=== PATIENT | female | born 1975 | race Caucasian/White ===

== ENCOUNTER 2018-05-02 00:45 | Outpatient (CLI) | payer OTHER, SELFPAY ==
--- NOTE | 2018-05-02 08:10 | DI.MAMMO_ITS ---
SYMPTOM/DIAGNOSIS: SCREENING, Z12.31 MAMMOGRAM: 04/22 Mammograms were interpreted according to the usual protocol including computer analysis with CAD system, tomosynthesis and C view imaging. The breasts are of moderate density with fairly symmetrical distribution of fibroglandular tissue. No dominant mass or clumped microcalcification is identified in either breast. The current examination is compared with previous examination of March 2016 and there has been no gross interval change in appearance in comparison with the previous study. CONCLUSION: No specific evidence of malignancy at this time. Routine screening examinations are suggested at yearly intervals due to the family history of breast carcinoma. Category 1, breast density category B. MQSA ASSESSMENT OF FINDINGS: Negative. Category 1. Patient will receive a letter notifying them of these results. BI-RADS category B. There are scattered areas of fibroglandular density.
== END 2018-05-02 01:05 ==
PROVIDERS: PCP Nurse Practitioner Family; Visit Provider Nurse Practitioner Family
DX: Z12.31 Encounter for screening mammogram for malignant neoplasm of breast (principal); Z80.3 Family history of malignant neoplasm of breast
CPT/HCPCS: 77063; 77067

== ENCOUNTER 2019-04-21 13:47 | Outpatient (REF) | payer OTHER, SELFPAY ==
--- NOTE | 2019-04-21 13:30 | PAPFT_PTH ---
PATIENT: Gisela Colon LOC: [facility] U#:[id number] AGE/SX: 43/F ROOM: RE04/21/[address]: MINH Olivas : 1975 BED: DIS: 04/21/2019 SPEC #: [id number] RECD: 04/21/19 17:23 STATUS: KAREY RELeonor #: [id number] ALEJANDRA: 04/21/19 13:[address]: Elsa Lyons DEPT: COUNT INCLUDES THE [facility] Cytology RECD BY: Candy Mc ENTERED: 04/21/19 17:23 SP TYPE: PAPFT KITAHR DR: Promise Joseph Tissues: 1 - CX/ENDOCX FOR PAP SMEARS Procedures: PAP THIN PREP/UVM Screening HPV DNA PROBE Comments: [id number]
== END 2019-04-21 14:07 ==
LOC: LBN 13:47
PROVIDERS: PCP Nurse Practitioner Family; Visit Provider Nurse Practitioner Family
DX: Z12.4 Encounter for screening for malignant neoplasm of cervix (principal); Z11.51 Encounter for screening for human papillomavirus (HPV)
CPT/HCPCS: 88142; 87624

== ENCOUNTER 2019-05-10 09:45 | Outpatient (CLI) | payer OTHER, SELFPAY ==
--- NOTE | 2019-05-10 09:41 | DI.RAD_ITS ---
EXAM: XR KNEE LT 4V AP,LAT,KAITLYNN,PAT CLINICAL HISTORY: KNEE INJURY TECHNIQUE: COMPARISON: No exams were available for comparison FINDINGS: Four views were obtained. No bony or soft tissue abnormality seen. IMPRESSION:
== END 2019-05-10 10:05 ==
PROVIDERS: PCP Nurse Practitioner Family; Referring Provider Nurse Practitioner Family; Visit Provider Student in an Organized Health Care Education/Training Program
DX: M25.562 Pain in left knee (principal); M70.52 Other bursitis of knee, left knee; M70.62 Trochanteric bursitis, left hip; M23.92 Unspecified internal derangement of left knee
CPT/HCPCS: 99203; 73564

== ENCOUNTER → 2019-06-27 08:49 | Outpatient (BNVA) | payer OTHER, SELFPAY | PROVIDERS: PCP Nurse Practitioner Family; Referring Provider Nurse Practitioner Family; Visit Provider Student in an Organized Health Care Education/Training Program | DX: M25.569 Pain in unspecified knee (principal); M23.8X2 Other internal derangements of left knee; M70.62 Trochanteric bursitis, left hip; M70.52 Other bursitis of knee, left knee | CPT/HCPCS: 99213 ==

== ENCOUNTER 2019-10-03 10:22 | Outpatient (CLI) | payer OTHER, SELFPAY ==
--- NOTE | 2019-10-03 08:30 | DI.RAD_ITS ---
EXAM: XR HIP RT 1V CLINICAL HISTORY: pain. TECHNIQUE: 2D digital imaging was performed. COMPARISON: XR HIP LT COMPLETE AP PELVIS from 10/03/2019 FINDINGS: BONES: No acute fracture is present. No bony destructive lesion is seen. There is mild bilateral stephen tabular spurring. There is partial sacralization of the right L5 transverse process with spurring at this site. Disc space narrowing is also noted at L4-5. There is some sclerosis at the pubic symphy sis. JOINTS: No dislocation present. The hip joint spaces are well maintained. The SI joints are unremar kable. SOFT TISSUE: Normal. IMPRESSION: Minimal degenerative changes of both hips. More advanced degenerative changes are seen in the lower lumbar spine.. DATA REPOSITORY: RADIATION DOSE DELIVERED:
== END 2019-10-03 10:42 ==
PROVIDERS: PCP Nurse Practitioner Family; Referring Provider Nurse Practitioner Family; Visit Provider Student in an Organized Health Care Education/Training Program
DX: M51.36 Other intervertebral disc degeneration, lumbar region; M23.92 Unspecified internal derangement of left knee; M70.52 Other bursitis of knee, left knee; M70.61 Trochanteric bursitis, right hip; M70.62 Trochanteric bursitis, left hip; M22.42 Chondromalacia patellae, left knee; M65.9 Synovitis and tenosynovitis, unspecified
CPT/HCPCS: 99214; 73501; 73502

== ENCOUNTER 2019-10-09 00:26 | Outpatient (CLI) | payer OTHER, SELFPAY ==
--- NOTE | 2019-10-09 07:00 | DI.MRI_ITS ---
EXAM: MR LOWER JOINT LT WO CLINICAL HISTORY: INTERNAL DERANGEMENT,SYNOVITIS,PAIN,M23.92,M65.9. TECHNIQUE: Multiplanar multisequence MRI was performed. COMPARISON: No exams were available for comparison FINDINGS: MR examination of the knee was performed according to the usual protocol. Bones: No significant bony signal abnormality is seen. Synovium: No gross synovial proliferation. Articular cartilage: There are small clefts in medial and lateral patellar articular cartilage and in corresponding lateral trochlear cartilage with moderately abnormal signal and some articular cartila ge thinning of the patellar articular cartilage, most clearly seen centrally on the sagittal images. The tibial and femoral articular cartilage appears intact. Extensor mechanism: Apart from the aforementioned articular cartilage abnormality of the patellofemor al joint, the extensor mechanism appears intact except for mild signal abnormality in the Hoffa fat p ad. The patellar retinacula are unremarkable. Cruciate ligaments: There is abnormal signal in the anterior cruciate ligament particularly adjacent to the tibial attachment but the fibers of the ACL appear intact, particularly on the oblique PD view . Findings may represent an ACL strain but are probably degenerative in nature. Menisci: Unremarkable appearance of the medial meniscus. Probable horizontal peripheral tear of the lateral meniscus posteriorly. Collateral ligaments: Unremarkable appearance of the collateral ligaments. IMPRESSION: Degenerative articular cartilage changes of the patellofemoral joint which can be characterized as mi [id number]. Probable peripheral horizontal posterior horn lateral meniscal tear. DATA REPOSITORY:
== END 2019-10-09 00:46 ==
PROVIDERS: PCP Nurse Practitioner Family; Visit Provider Student in an Organized Health Care Education/Training Program
DX: M25.562 Pain in left knee (principal); M17.12 Unilateral primary osteoarthritis, left knee; M23.92 Unspecified internal derangement of left knee; M65.9 Synovitis and tenosynovitis, unspecified; S83.282A Other tear of lateral meniscus, current injury, left knee, initial encounter
CPT/HCPCS: 73721

== ENCOUNTER → 2019-10-26 10:41 | Outpatient (BNVA) | payer OTHER, SELFPAY | PROVIDERS: PCP Nurse Practitioner Family; Referring Provider Nurse Practitioner Family; Visit Provider Student in an Organized Health Care Education/Training Program | DX: M70.61 Trochanteric bursitis, right hip; M70.62 Trochanteric bursitis, left hip; M22.42 Chondromalacia patellae, left knee; S83.282D Other tear of lateral meniscus, current injury, left knee, subsequent encounter; X58.XXXD Exposure to other specified factors, subsequent encounter | CPT/HCPCS: 99213 ==

== ENCOUNTER 2019-12-25 13:32 | Outpatient (REF) | payer OTHER, SELFPAY ==
[2019-12-30 06:51] LABS: SARS-CoV-2 RNA Undetected (Undetected); SARS-CoV-2 Specimen Source Nasopharynx
== END 2019-12-25 13:52 ==
LOC: NCHCN 13:32
PROVIDERS: PCP Nurse Practitioner Family; Visit Provider Nurse Practitioner Family
DX: Z20.828 Contact with and (suspected) exposure to other viral communicable diseases (principal)
CPT/HCPCS: U0003

== ENCOUNTER 2020-06-05 01:02 | Outpatient (CLI) | payer OTHER, SELFPAY ==
--- NOTE | 2020-06-05 12:10 | DI.MAMMO_ITS ---
EXAM: MG MAMMO SCREENING CLINICAL HISTORY: screening TECHNIQUE: Bilateral full field digital CC and MLO mammographic images were obtained with 3D tomosyn thesis and utilizing computer aided detection (CAD). COMPARISON: Available for comparison. FINDINGS: Masses/Architectural Distortion: None seen. Microcalcifications: No suspicious pleomorphic-type are seen. Skin Thickening/Nipple Retraction: None. IMPRESSION: 1. No significant interval change with no specific features of malignancy noted. 2. Unless there is more urgent need, screening mammography is recommended, as per [employer] guidelines. BI-RADS Category 1 - Negative Breast Density - Category B - Scattered areas of fibroglandular density Breast density category C or D implies that the patient has dense breast tissue. Dense breast tissue is very common and is not abnormal but dense breast tissue can make it harder to find cancer on a ma mmogram. Also, dense breast tissue may increase their breast cancer risk. This information about the result of the mammogram report was provided to the patient to raise their awareness. Use this report when you speak with the patient about their risks for breast cancer, which includes their family hist ory. At that time, you may recommend for more screening tests (Ultrasound or MRI) as they might be us eful based on their risk. A negative radiographic report should not delay biopsy if a dominant or clinically suspicious mass is present. Up to ten percent of cancers are not identified on mammography. A negative report may reinforce clinical impression. Adenosis and dense breasts may obscure an underlying neoplasm. False positive reports average 6 to 10%. Patient will receive a letter notifying them of these results.
== END 2020-06-05 01:22 ==
PROVIDERS: PCP Nurse Practitioner Family; Visit Provider Nurse Practitioner Family
DX: Z12.31 Encounter for screening mammogram for malignant neoplasm of breast (principal)
CPT/HCPCS: 77063; 77067

== ENCOUNTER 2022-07-08 12:03 | Outpatient (REF) | payer OTHER, SELFPAY ==
--- NOTE | 2022-07-08 11:30 | PAPFT_PTH ---
PATIENT: Gisela Colon LOC: [facility] U#:[id number] AGE/SX: 46/F ROOM: RE07/08/[address]: Carisa Mcduffie NP : 1975 BED: DIS: 07/08/2022 SPEC #: [id number] RECD: 07/08/22 13:00 STATUS: KAREY SOLIMAN #: [id number] ALEJANDRA: 07/08/22 11:[address]: Carisa Mcduffie NP DEPT: [facility] Cytology RECD BY: Candy Mc ENTERED: 07/08/22 13:00 SP TYPE: PAPFT OTHR DR: Promise Joseph Tissues: 1 - CX/ENDOCX FOR PAP SMEARS Procedures: PAP THIN PREP/UVM Screening HPV DNA PROBE Comments: [id number]
== END 2022-07-08 12:04 | disposition home or self-care (01) ==
LOC: LBN 12:03
PROVIDERS: PCP Nurse Practitioner Family; Visit Provider Nurse Practitioner Women's Health
DX: Z12.4 Encounter for screening for malignant neoplasm of cervix (principal); Z11.51 Encounter for screening for human papillomavirus (HPV)
CPT/HCPCS: 88142; 87624

== ENCOUNTER 2022-07-31 00:28 | Outpatient (CLI) | payer OTHER, SELFPAY ==
--- NOTE | 2022-07-31 06:45 | DI.MAMMO_ITS ---
Exam(s) MAMMO SCREENING EXAM: MAMMO SCREENING CLINICAL HISTORY: screening,z12.39 TECHNIQUE: Mammograms were interpreted according to the usual protocol including computer analysis w [employer] CAD system, tomosynthesis and C-view imaging. COMPARISON: 2015 through 2019 FINDINGS: The breasts are composed of scattered fibroglandular densities, Breast Density category B. No suspicious masses or suspicious microcalcifications are seen. No skin thickening or abnormal axillary lymph nodes are seen. There has been no significant change from prior exams. IMPRESSION: BI-RADS Category 1, Negative mammogram Yearly screening mammography is recommended. Breast Density - Category B, scattered fibroglandular densities. A negative radiographic report should not delay biopsy if a dominant or clinically suspicious mass is present. Up to ten percent of cancers are not identified on mammography. A negative report may reinforce clinical impression. Adenosis and dense breasts may obscure an underlying neoplasm. False positive reports average 6 to 10%. Patient will receive a letter notifying them of these results.
--- NOTE | 2022-07-31 06:45 | DI.US_ITS ---
Exam(s) US PELVIS TRANSVAGINAL EXAM: US PELVIS TRANSVAGINAL CLINICAL HISTORY: Abnl uterine bleeding,heavy menstrual cycles,n92.0 TECHNIQUE: Transabdominal and transvaginal imaging was performed using standard protocol. COMPARISON: No exams were available for comparison FINDINGS: UTERUS: Anteverted. 9.3 x 5.6 x 8.0 cm Endometrium: Homogeneous, 5 millimeters in thickness. Mm Myometrium: Mildly heterogeneous. No discrete fibroids identified. Cervix: Unremarkable. OVARIES: Right: Cyst or mass: None. Left: Cyst or mass: None. DOPPLER: Color: Symmetric and uniform flow to both ovaries. No hyperemia. CUL-DE-SAC: Free fluid: None. IMPRESSION: 1. Mildly enlarged uterus with heterogeneous myometrium. Endometrial stripe within normal limits. 2. Unremarkable bilateral ovaries. DATA REPOSITORY:
== END 2022-07-31 00:48 ==
LOC: DI 00:28
PROVIDERS: PCP Nurse Practitioner Family; Visit Provider Nurse Practitioner Women's Health
DX: Z12.31 Encounter for screening mammogram for malignant neoplasm of breast (principal); N92.0 Excessive and frequent menstruation with regular cycle; N85.2 Hypertrophy of uterus
CPT/HCPCS: 77063; 77067; 76830; 76856

== ENCOUNTER 2022-08-20 15:25 | Outpatient (REF) | payer OTHER, SELFPAY ==
--- NOTE | 2022-08-20 15:00 | ENDOMET_PTH ---
PATIENT: Gisela Colon LOC: [facility] U#:[id number] AGE/SX: 47/F ROOM: RE08/20/[address]: Kelsey Groves DO : 1975 BED: DIS: 08/20/2022 SPEC #: [id number] RECD: 08/20/22 18:16 STATUS: KAREY REQ #: [id number] ALEJANDRA: 08/20/22 15:[address]: Kelsey Groves DEPT: Surgical Specimen RECD BY: Candy Mc ENTERED: 08/20/22 18:17 SP TYPE: Endomet OTHR DR: Promise Joseph Tissues: 1 - ENDOMETRIUM BX/MELANY Procedures: GROSS AND MICRO LEVEL 4 Comments: [id number]
== END 2022-08-20 15:26 | disposition home or self-care (01) ==
LOC: LBN 15:25
PROVIDERS: PCP Nurse Practitioner Family; Visit Provider Obstetrics & Gynecology
DX: N93.8 Other specified abnormal uterine and vaginal bleeding (principal); N85.8 Other specified noninflammatory disorders of uterus
CPT/HCPCS: 88305

== ENCOUNTER 2022-12-07 03:04 | Outpatient (CLI) | payer BC, SELFPAY ==
[2022-12-07 16:08] LABS: HCT 37.2 % (36.0-46.0); HGB 12.5 g/dL (11.2-15.7); MCHC 33.6 % (32.0-36.0); MCV 89 fL (80-95); MPV 9.6 fL (8.0-11.0); Platelet Count 379 10^3/uL (130-400); RBC 4.17 10^6/uL (3.93-5.22); RDW 12.5 % (11.7-14.6); RDW-SD 40.8 fL; WBC 8.08 10^3/uL (4.4-10.8)
== END 2022-12-07 03:05 | disposition home or self-care (01) ==
LOC: LBO 03:04
PROVIDERS: PCP Family Medicine; Visit Provider Obstetrics & Gynecology
DX: Z01.818 Encounter for other preprocedural examination (principal)
CPT/HCPCS: 36415; 85027; 86850; 86900; 86901

== ENCOUNTER 2022-12-09 07:24 | Day surgery (SDC) | payer BC, SELFPAY ==
[2022-12-09 07:30] VITALS: BP 130/75; PULSE 80; RESP 16; TEMP 36.7; O2SAT 80
--- NOTE | 2022-12-09 07:56 | W.ANESPRE ---
General Info Date of Service Date Performed: 12/09/22 Height: 5 ft 5 in Weight: 92.3 kg Body Mass Index (BMI): 33.8 Surgical Procedure: Operation Date: 12/09/22 08:40 Proposed Procedure Side Surgeon p Endometrial Ablation, DO Brenna Luna Allergies and Home Medications Allergies Allergy/AdvReac Type Severity Reaction Status Date / Time No Known Allergies Allergy Verified 12/09/22 07:13 Home Medication Medication Instructions Recorded ibuprofen 200 mg tablet (Advil) 200 mg PO Q6H PRN 10/26/19 norethindrone acetate 5 mg tablet 10 mg PO DAILY #120 tabs 11/20/22 (Aygestin) tranexamic acid 650 mg tablet 650 mg PO Q8H #15 tabs 11/20/22 (Lysteda) Current Visit Medications: Current Medications Generic Name Dose Route Start Last Admin Trade Name Freq PRN Reason Stop Dose Admin Ringer's Solution 1,000 mls @ 125 mls/hr 12/09/22 06:00 IV 01/07/23 23:59 INFUSION GAGE IV Miscellaneous Supplies 1 each 12/09/22 06:00 Iv Access IV 01/07/23 23:59 DIRECTED GAGE Sodium Chloride 0 ml 12/09/22 06:00 Normal Saline Flush 10 Ml Syr IV 01/07/23 23:59 PRN PRN Sodium Chloride 0 ml 12/09/22 06:00 Normal Saline 10 Ml Vial IJ 01/07/23 23:59 DIRECTED PRN Sterile Water 0 ml 12/09/22 06:00 Water,Injection,Sterile 10 Ml Vial IJ 01/07/23 23:59 DIRECTED PRN PFSH Active Problems Active Problems: Problem Status Onset Code Pes anserinus bursitis of left knee 03/2019 M70.52 Trochanteric bursitis, left hip 03/2019 M70.62 Trochanteric bursitis of both hips M70.61, M70.62 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 Synovitis of left knee M65.9 Lateral meniscus tear S83.289A Dysfunctional uterine bleeding N93.8 Medical History Medical History Internal derangement of left knee (03/2019) Possible medial mensical tear IUD surveillance No longer in situ, passed with large clot Surgical History Surgical History Tonsillectomy and adenoidectomy age 7 yrs Tobacco Smoking/Tobacco Use Status: Never Alcohol Alcohol Intake: current Alcohol intake frequency: a few times a week Substance Use Substance use type: does not use Prental History History 4 Para 4 Hx # Term Pregnancies Multiple births Hx # Pregnancies Ectopic pregnancies AB induced Hx Number of Living Children AB spontaneous Vital Signs and Lab Results Vital Signs Most Recent Vital Signs in EMR: Most Recent Vital Signs Temp Pulse Resp BP Pulse Ox 36.7 C 80 16 130/75 80 L 12/09/22 07:30 12/09/22 07:30 12/09/22 07:30 12/09/22 07:30 12/09/22 07:30 Point of Care Results Point of Care Results: POC- Test(urine) Negative 12/09/22 08:09 Lab Results Blood Type / Crossmatch: Patient ABO/Rh AB Positive 12/07/22 Antibody Screen NEGATIVE 12/07/22 Complete Blood Count: White Blood Count 8.08 10^3/uL (4.4-10.8) 12/07/22 16:05 Red Blood Count 4.17 10^6/uL (3.93-5.22) 12/07/22 16:05 Hemoglobin 12.5 g/dL (11.2-15.7) 12/07/22 16:05 Hematocrit 37.2 % (36.0-46.0) 12/07/22 16:05 Platelet Count 379 10^3/uL (130-400) 12/07/22 16:05 Complete Metabolic Panel: No Data to Display Liver Function Panel: No Data to Display Coagulation Panel: No Data to Display Cardiac Panel: No Data to Display Arterial Blood Gas: No Data to Display Venous Blood Gas: No Data to Display Pancreas Panel: No Data to Display Thyroid Panel: No Data to Display Infectious Disease: No Data to Display Blood Cultures: No Data to Display Toxicology Panel: No Data to Display Panel: No Data to Display Anesthesia Assessment and Plan Anesthesia History Personal History: No History of Anesthesia Complications Family History: No Family History of Anesthesia Complications Exercise Tolerance Exercise Tolerance: Metabolic Equivalents>4 Pertinent Negatives Pertinent Negatives: No Symptoms of GERD, No Major Cardiovascular Symptoms or Complaints and No Major Pulmonary Symptoms or Complaints Cardiac & Pulmonary Exam Cardiac Exam: Normal S1/S2 Heart Sounds Pulmonary Exam: Clear Bilateral Breath Sounds Implantable Cardiac Device Does patient have a Pacemaker or an ICD?: No Airway Exam Known Difficult Airway: No Mallampati Class: 3 Mouth Opening: Normal (> 3cm) Thyromental Distance: Less than 3 cm Neck Range of Motion: Full ROM Neck Circumference: Normal Teeth Condition: Normal Dentition ASA Classification ASA Score: ASA 2 Emergency Case?: No NPO Status NPO Status: NPO Clears >2 hours, Solids >8 hours Status Status: Negative HCG Anesthesia Plan Resuscitation Status: Full Code Anesthesia Technique: General Anesthesia Airway Planned: Natural Airway Monitors Used: Standard Monitors
[2022-12-09 08:17] VITALS: BMI 33.8
[2022-12-09] MEDS: Lactated Ringers 1,000 ML 125 ML IV (08:18)
[2022-12-09 09:18] VITALS: BP 99/71; PULSE 83; RESP 20; TEMP 36.4; O2SAT 94
--- NOTE | 2022-12-09 09:18 | ROE_ITS ---
Date of service: 12/09/22 Time of Service: 09:18 Operative Note Operative Note DATE OF PROCEDURE: 12/09/22 PRE-OP DIAGNOSIS: Dysfunctional uterine bleeding POST-OP DIAGNOSIS: same PROCEDURE: Hysteroscopy, NovaSure endometrial ablation SURGEON: Kelsey Groves ANESTHESIA TYPE: General:No Airway Refer to Anesthesia Record ESTIMATED BLOOD LOSS: 5 PATHOLOGY: none sent COMPLICATIONS: None Patient was transported to: same day Patient's condition: stable Indications: Ongoing dysfunctional uterine bleeding unresponsive to medical management. Findings: Destrehan endometrium, normal-appearing tubal ostia. Cavity assessment with cavity length of 6.5 cm, cavity width 3.75 cm, total burn time 49 seconds Procedure Description: After full informed consent was obtained and negative status verified, patient was taken the operating suite with an IV running. She was placed in the modified dorsal lithotomy position in yellowfin stirrups and prepped and draped in the usual sterile fashion. Timeout was held and confirmed. Exam under anesthesia revealed a uterus that was midline and mobile. Bladder was previously emptied. A speculum was inserted into the vaginal vault. Single- tooth tenaculum used to grasp the anterior lip of the cervix and the cervical os dilated to the point then 4 mm hysteroscope could be passed without difficulty. With instillation of normal saline the endometrial cavity was inspected noted to be somewhat plush but regular without evidence of polyp or fibroid. Both tubal ostia were visualized. At this point the hysteroscope portion of the procedure was terminated and cervical os dilated. Cavity assessment was performed with a cavity length of 6.5 cm and a cavity width of 3.75 cm. Endometrial ablation device, NovaSure was inserted into the uterine cavity at this point and cavity assessment performed and completed. Radio frequency of 132 W was used to perform a burn time of 49 seconds without difficulty. The device was then removed and found to be intact. Single-tooth tenaculum was then removed from the anterior lip of the cervix and puncture sites were hemostatic. Speculum was removed and the patient was returned to the dorsal supine position and awoke from anesthesia without difficulty. Findings: Destrehan endometrium Complications: None Pathology: None sent Cavity assessment: Length 6.5 cm, width 3.75 cm, burn time 49 seconds with a power of 132. Fluids: Crystalloid per anesthesia.
--- NOTE | 2022-12-09 09:48 | W.ANESPOSTOP ---
Postoperative Evaluation Date, Time and Location Date Performed: 12/09/22 Time Performed: 09:49 Patient Location: Day Surgery Unit Vital Signs Most Recent Imported Vital Signs: Most Recent Vital Signs Temp Pulse Resp BP Pulse Ox 36.4 C L 83 20 99/71 L 94 12/09/22 09:18 12/09/22 09:18 12/09/22 09:18 12/09/22 09:18 12/09/22 09:18 Pain Score Most Recent Pain Score: Most Recent Pain Score Pain Level 0 12/09/22 09:18 Assessment Mental Status: Awake (Alert & Oriented to Patient Baseline) Airway and Respiratory Function: Patent airway with normal (patient baseline) respiratory exam Cardiovascular Function: Hemodynamically Stable Hydration Status: Adequately Hydrated Nausea & Vomiting: No Nausea or Vomiting Pain: Pain is tolerable per patient Peripheral Nerve Block: Patient did not receive a nerve block
== END 2022-12-09 10:25 | disposition home or self-care (01) ==
PROVIDERS: PCP Nurse Practitioner Family; Visit Provider Obstetrics & Gynecology
PROC: (CPT 58353; principal; 2022-12-09 08:30)
DX: N93.9 Abnormal uterine and vaginal bleeding, unspecified (principal)
CPT/HCPCS: 58563; 81025; J1100; J1885; J2405; J2704

== ENCOUNTER 2023-02-08 17:44 | Emergency (ER) | payer BC, SELFPAY ==
[2023-02-08 17:59] VITALS: BP 136/87; PULSE 80; RESP 16; TEMP 37.3; O2SAT 98
--- NOTE | 2023-02-08 18:59 | ED.GENADUL_ITS ---
Discharge Plan Disposition Patient Disposition: Home Condition: Good Discharge Details Clinical Impression: Left ankle sprain, Iliotibial band tendonitis Primary Care Provider: Blank Owen ED Provider: Samantha Escobar Home Meds and New Rx's Prescriptions: Continued ibuprofen [Advil] 200 mg tablet 200 mg PO Q6H PRN Discharge Instructions Instructions: Ankle Sprain (ED), Tendinitis (ED) Additional Instructions: As we discussed, your x-ray is reassuring here today. No evidence of fracture or dislocation. Please continue with the ankle brace for the next week. Please encourage rest, ice, elevation. Tylenol and ibuprofen as needed for discomfort. In regard to the pain in the left thigh, I agree, this is likely associated with muscle strain. Heat and use will help with this and prevent any type of spasm. If you develop any new or worsening symptoms please seek care u rgently once again. Otherwise, please follow-up with your primary care in 2 weeks for reevaluation. Once able, please begin the alphabet strengthening of the left ankle. Referrals: Blank Owen [Primary Care Provider] - Discharge Data Discharge Date/Time-TO BE ENTERED AT DEPARTURE: 02/08/23 20:53 Medical Decision Making Patient is a pleasant 47-year-old female with significant history for multiple areas of bursitis as well as multiple episodes of right ankle sprain, presenting with chief complaint of right ankle pain and left thigh pain. She reports a prior to arrival she was carrying multiple bags while face timing her sons when she tripped down the last step and suffered an internal rotational injury to the right ankle. Has noted swelling, pain to the lateral aspect of the ankle. She reports when this occurred she also pulled the lateral thigh and is having pain running laterally from the left hip to the left knee. Denies other injury the time of the incident. Did not strike her head. On exam, patient appears nontoxic. She does have notable swelling over the lateral malleolus. No significant discoloration. She has 2+ distal pulses. Sensation is intact. She has good range of motion. No pain over the proximal fifth metatarsal. No pain over the proximal fibula. Pain is over the lateral malleolus as well as the ATFL and deltoid ligaments. No pain in the midfoot or medially. Achilles is palpated to be intact and nontender. Concern for potential fracture will obtain x-ray. Regard to the patient's left thigh, she is primarily point tender over the left IT band. No ecchymosis, deformity. She has good range of motion. FINDINGS: Bones/joints:? Degenerative changes.? No acute fracture or dislocation. Chronic ossicle adjacent to the lateral malleolus Soft tissues:? Swelling laterally IMPRESSION: No acute fracture. Discussed with patient. Encouraged rest, ice, elevation. Tylenol and ibuprofen as needed for discomfort. We will place her in a lace up ankle stabilizing brace. We discussed exercises she can do at home. At this time, she does not have time for physical therapy but will begin doing the alphabet ankle exercises to strengthen her ankle. We discussed PT but she does not feel that she has time at this point and would prefer to try to home strengthening. Advised f/u with PCP in 2 weeks. Return precautions discussed. All of her questions and concerns were addressed, patient in agreemetn with this plan. HPI General Date/Time Provider Initiated Documentation: 02/08/23 18:38 . Limitations to Documentation: no limitations . Information obtained by: patient, family and RN notes reviewed . History of Present Illness 47 year old F presents to the emergency department with the chief complaint of right ankle, left thigh pain after mechanical fall, describ ed as moderate and similar to prior episodes (has rolled this ankle several times in the past), with intensity rated at 7. Quality is described as aching, and is localized to the left, right and lower extremity. Patient reports no radiation. Patient started experiencing this hour(s) and it has been constant. Immobilization improves symptom(s), Movement worsens symptoms . Patient notes no other symptoms.. Patient did receive the following treatments prior to arrival, none Related Data Home Medications Medication Instructions Recorded Confirmed ibuprofen 200 mg tablet (Advil) 200 mg PO Q6H PRN 10/26/19 12/08/22 Allergies Allergy/AdvReac Type Severity Reaction Status Date / Time No Known Allergies Allergy Verified 12/25/22 15:44 General Stated Complaint: Orthopedic JOHNATHAN: 4 Review of Systems Constitutional Constitutional: Reports as per HPI, Denies headache(s) and Denies weakness ENT Ears, Nose, Mouth, and Throat: Denies headache(s) Cardiovascular Cardiovascular: Reports as per HPI Musculoskeletal Musculoskeletal: Reports as per HPI and Denies tingling Integumentary/Breasts Skin/Breast: Reports as per HPI, Denies rash and Denies wounds Neurologic Neurologic: Reports as per HPI, Denies headache(s), Denies tingling, Denies paresthesias and Denies weakness PFSH All Active Problems (Updated 02/08/23 @ 20:05 by HYUN Solares) Left ankle sprain (Acute) Iliotibial band tendonitis (Acute) Pes anserinus bursitis of left knee (Acute 03/2019) Trochanteric bursitis, left hip (Acute 03/2019) Trochanteric bursitis of both hips (Acute) Chondromalacia patellae of left knee (Acute) Synovitis of left knee (Acute) Lateral meniscus tear (Acute) Medical History (Updated 02/08/23 @ 20:05 by HYUN Solares) Internal derangement of left knee (03/2019) Possible medial mensical tear IUD surveillance No longer in situ, passed with large clot Surgical History (Updated 12/25/22 @ 16:26 by Kelsey Groves DO) History of endometrial ablation Tonsillectomy and adenoidectomy age 7 yrs Family History Father Testicular cancer Brother Testicular cancer Social History Smoking/Tobacco Use Status: Never Smoking risk assessment performed?: Yes Alcohol Intake: current Alcohol Intake frequency: a few times a week Drug use: Never Substance use type: does not use Housing: house 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 - [employer] Current gender identity: female Seatbelt use: always Do you feel safe at home: Yes Do you feel safe in your relationship?: Yes Female Reproductive History Menstrual control method: other History History 4 Para 4 Hx # Term Pregnancies Multiple births Hx # Pregnancies Ectopic pregnancies AB induced Hx Number of Living Children AB spontaneous Exam Const General: cooperative, healthy appearing, comfortable, no acute distress, well developed and well groomed Nutritional Appearance: well nourished and overweight Orientation: alert and awake Resp Effort & Inspection: normal respiratory effort, able to speak in complete sentences and no respiratory distress Cardio Rate: regular rate Rhythm: regular rhythm Skin General skin exam: no rashes or lesions noted Lesions: no lesions Rashes: no rashes Trauma: no lacerations or abrasions Neuro General: patient alert and patient awake Cognition: normal cognition Speech: speech normal Gait: antalgic Motor: muscle tone normal throughout Sensory Exam: no sensory deficits noted Extrem Upper/lower leg/hip images: 1. Area of discomfort over the IT band. She has good ROM. Intact distal pulses. No visible or palpable deformity. No bony point tenderness that is new. She is uncomfortable over the greater trochanter with palpation but she reports old, hx of bursitis here. Ankle/foot/toe images: 1. Area of swelling. No discoloration. 2+ distal pulses. Sensation intact. No pain over the 5th proximal metatarsal. No midfoot pain. Good ROM. Achilles is intact and non-tender. No medial sided pain. No proximal fibula pain. Pain over the lateral malleolus and ATFL and deltoid ligament. Psych Appearance: grossly normal and well kempt Mental Status: mental status grossly normal Speech and Movement: speech and movement normal Course Vital Signs Vital signs: Vital Signs Temperature 37.3 C 02/08/23 17:59 Pulse 80 02/08/23 17:59 Respiratory Rate 16 02/08/23 17:59 Blood Pressure 136/87 02/08/23 17:59 Pulse Oximetry 98 02/08/23 17:59 Temperature 37.3 C 02/08/23 17:59 Temperature Source Skin 02/08/23 17:59 Pulse 80 02/08/23 17:59 Respiratory Rate 16 02/08/23 17:59 Respiratory Effort Normal, Non-Labored 02/08/23 18:30 Blood Pressure 136/87 02/08/23 17:59 Blood Pressure Position Sitting 02/08/23 17:59 Pulse Oximetry 98 02/08/23 17:59 Oxygen Delivery Method Room Air 02/08/23 17:59 Oxygen Flow Rate 0 02/08/23 17:59 Pain Level 7 02/08/23 17:59 Comment pain increases with weight bearing 02/08/23 17:59 Lab/Test Results Lab/Test Results: POC- Test(urine) Negative PAWSS Have you Been Recently Intoxicated or Drunk Within the Last 30 days?: No Have you Ever Experienced Previous Episodes of Alcohol Withdrawal?: No Have you ever Experienced Withdrawal Seizures?: No Have you ever Experienced Delirium Tremens(DT)s?: No Have you ever undergone Alcohol Rehabilitation Treatment (i.e, inpt ot outpatient treatment programs)?: No Have you ever Experienced Blackouts?: No Have you ever Combined Alcohol with other Downers within the last 90 days?: No Have you ever Combined Alcohol with any other Substance of Abuse during the last 90 days?: No Positive Blood Alcohol level on Presentation? [PCS.BAL]: No Evidence of Increased Autonomic Activity (i.e. HR>120, tremor, sweating, agitation, nausea)?: No Result: 0
--- NOTE | 2023-02-08 19:03 | DI.RAD_ITS ---
Exam(s) XR ANKLE RT COMPLETE EXAM: XR ANKLE RT COMPLETE CLINICAL HISTORY: fall. TECHNIQUE: 2D digital imaging was performed of the right ankle. Three images were obtained. AP, la teral and oblique views were obtained. COMPARISON: No exams were available for comparison FINDINGS: BONES: No acute fracture is present. No bony destructive lesion is seen. There is an chronic ossicle adjacent to the lateral malleolus. JOINTS: The ankle mortise is normally aligned. SOFT TISSUE: Soft tissue swelling of the ankle laterally. IMPRESSION: Soft tissue swelling of the ankle. No acute fracture. DATA REPOSITORY: RADIATION DOSE DELIVERED:
--- NOTE | 2023-02-08 19:08 | DI.VRAD_ITS ---
PROCEDURE INFORMATION: Exam: XR Right Ankle Exam date and time: 02/08/2023 6:57 PM Age: 47 years old Clinical indication: Injury or trauma; Fall; Blunt trauma; Ankle; Right; Injury date: 02/08/23 TECHNIQUE: Imaging protocol: Radiologic exam of the right ankle. Views: 3 or more views. COMPARISON: No relevant prior studies available. FINDINGS: Bones/joints: Degenerative changes. No acute fracture or dislocation. Chronic ossicle adjacent to the lateral malleolus Soft tissues: Swelling laterally IMPRESSION: No acute fracture. Dictated and Authenticated by: Matt Cardoza MD. Ordering:CHANTE Singh MD
--- NOTE | 2023-02-09 07:54 | NUR.NOTE ---
Accessed chart for [facility] billing purposes.Nursing Note:
== END 2023-02-08 20:53 | disposition home or self-care (01) ==
PROVIDERS: Emergency Provider Physician Assistant; PCP Nurse Practitioner Family
DX: S93.401A Sprain of unspecified ligament of right ankle, initial encounter (principal); M76.32 Iliotibial band syndrome, left leg; W01.0XXA Fall on same level from slipping, tripping and stumbling without subsequent striking against object, initial encounter
CPT/HCPCS: 81025; 99283; 73610

== ENCOUNTER 2023-04-09 11:29 | Outpatient (REF) | payer BC, SELFPAY ==
--- NOTE | 2023-04-09 10:47 | SKI_PTH ---
PATIENT: Gisela Colon LOC: [place] U#:[id number] AGE/SX: 47/F ROOM: RE04/09/[address]: BLANK OWEN : 1975 BED: DIS: 04/09/2023 SPEC #: [id number] RECD: 04/09/23 16:07 STATUS: KAREY RELeonor #: [id number] ALEJANDRA: 04/09/23 10:[address]: Blank Owen DEPT: Surgical Specimen RECD BY: Candy Mc Tissues: 1 - SKIN BIOPSY(SHAVE/PUNCH) Procedures: SKIN LEVEL 4 Comments: [id number]
== END 2023-04-09 11:30 | disposition home or self-care (01) ==
LOC: LBN 11:29
PROVIDERS: PCP Nurse Practitioner Family; Visit Provider Nurse Practitioner Family
DX: L98.9 Disorder of the skin and subcutaneous tissue, unspecified (principal); L85.8 Other specified epidermal thickening
CPT/HCPCS: 88305

== ENCOUNTER → 2023-08-09 02:11 | Outpatient (CLI) | payer BC, SELFPAY ==
--- NOTE | 2023-08-09 15:15 | DI.MAMMO_ITS ---
Exam(s) MAMMO SCREENING EXAM: MAMMO SCREENING CLINICAL HISTORY: screening. TECHNIQUE: Bilateral full field digital CC and MLO mammographic images were obtained with 3D tomosyn thesis and utilizing computer aided detection (CAD). COMPARISON: Prior mammograms were reviewed. FINDINGS: There are no new right breast findings. In the left breast there is an asymmetric density-possible nodule measuring 9 x 8 mm located 5 cm in from the nipple, medial of center on the CC view. Requires additional imaging. A 2nd finding in left breast seen on the MLO view is a benign-appearing round 4 mm nodule located 3 c m in from the nipple on the MLO view and unchanged from prior recent mammograms. This has appearance of a probable benign oil cyst. There are no malignant-appearing microcalcification groups in either breast. There is no significant architectural distortion nor skin thickening-retraction. IMPRESSION: 1. No radiographic evidence of malignancy in the right breast. 2. Left breast asymmetric density-possible nodule located medially of center on the CC view. Recomme nd spot compression view and ultrasound. BI-RADS Category 0 - Assessment Incomplete: Need additional imaging evaluation Breast Density - Category B - Scattered areas of fibroglandular density Breast density Category C or D implies that the patient has dense breast tissue. Dense breast tissue can make it harder to find cancer on a mammogram. Dense breast tissue is also associated with an incr eased risk of breast cancer. This information about the result of the mammogram report was provided to the patient to raise their awareness. Use this report when you speak with the patient about their risks for breast cancer, which includes their family history. At that time, you may recommend additional screening tests (Ultrasoun d or MRI) as these tests may add significant information. A negative radiographic report should not delay biopsy if a dominant or clinically suspicious mass is present. Up to ten percent of cancers are not identified on mammography. A negative report may reinforce clinical impression. Adenosis and dense breasts may obscure an underlying neoplasm. False positive reports average 6 to 10%. Patient will receive a letter notifying them of these results.
== END ==
PROVIDERS: PCP Nurse Practitioner Family; Visit Provider Obstetrics & Gynecology
DX: Z12.31 Encounter for screening mammogram for malignant neoplasm of breast (principal)
CPT/HCPCS: 77063; 77067

== ENCOUNTER → 2023-08-12 02:41 | Outpatient (CLI) | payer BC, SELFPAY ==
--- NOTE | 2023-08-12 | DI.MAMMO_ITS ---
Exam(s) MAMMO SCREEN CALL BACK UNI EXAM: MAMMO SCREEN CALL BACK UNI CLINICAL HISTORY: F/U ABNL MAMMO, R92.8,LT ASYMMETRIC DENSITY TECHNIQUE: Spot compression views with tomographic imaging were performed. COMPARISON: 2015 through 2022, recent exam 09 August 2023 which questioned asymmetric density on the CC view of the right breast. FINDINGS: No suspicious masses or suspicious microcalcifications are seen. No persistent abnormality is seen on the additional views performed. The findings are consistent wit h overlying fibroglandular tissue. There has been no significant change from prior exams. IMPRESSION: BI-RADS Category 1, Negative Yearly screening mammography is recommended. Breast Density - Category B, scattered fibroglandular densities.
== END ==
PROVIDERS: PCP Nurse Practitioner Family; Visit Provider Obstetrics & Gynecology
DX: Z12.31 Encounter for screening mammogram for malignant neoplasm of breast (principal); R92.8 Other abnormal and inconclusive findings on diagnostic imaging of breast
CPT/HCPCS: 77063; 77067

== ENCOUNTER 2023-11-10 09:04 | Outpatient (REF) | payer BC, SELFPAY | END 2023-11-10 09:05 | disposition home or self-care (01) | LOC: LBN 09:04 | PROVIDERS: Visit Provider Nurse Practitioner Women's Health | DX: R30.0 Dysuria (principal) | CPT/HCPCS: 87086 ==

== ENCOUNTER 2024-08-15 02:17 | Outpatient (CLI) | payer OTHER, SELFPAY ==
--- NOTE | 2024-08-15 08:18 | DI.MAMMO_ITS ---
Exam(s) MAMMO SCREENING EXAM: MAMMO SCREENING CLINICAL HISTORY: screening. TECHNIQUE: Bilateral full field digital CC and MLO mammographic images were obtained with 3D tomosyn thesis and utilizing computer aided detection (CAD). COMPARISON: Prior mammograms were reviewed. FINDINGS: There has been no significant change in the appearance and distribution of the fibroglandular tissue. No CAD designations. There are no new right breast findings In the left breast the asymmetric density seen slightly medial of center on the CC view located 5 cm in from the nipple appears unchanged.. Recommend left breast ultrasound. There are no malignant-marlena earing microcalcification groups this region or elsewhere in either breast. Small benign-appearing o il cyst in left breast is again noted. There is no significant architectural distortion nor skin thickening-retraction. IMPRESSION: 1. No radiographic evidence of malignancy in the right breast. 2. Persistent unchanged asymmetric density-possible nodule in the left breast measuring 6 x 5 mm. Le ft breast ultrasound recommended BI-RADS Category 0 - Incomplete: Need additional imaging evaluation Breast Density - Category B - Scattered areas of fibroglandular density Breast density Category C or D implies that the patient has dense breast tissue. Dense breast tissue can make it harder to find cancer on a mammogram. Dense breast tissue is also associated with an incr eased risk of breast cancer. This information about the result of the mammogram report was provided to the patient to raise their awareness. Use this report when you speak with the patient about their risks for breast cancer, which includes their family history. At that time, you may recommend additional screening tests (Ultrasoun d or MRI) as these tests may add significant information. A negative radiographic report should not delay biopsy if a dominant or clinically suspicious mass is present. Up to ten percent of cancers are not identified on mammography. A negative report may reinforce clinical impression. Adenosis and dense breasts may obscure an underlying neoplasm. False positive reports average 6 to 10%. Patient will receive a letter notifying them of these results.
== END 2024-08-15 02:37 ==
PROVIDERS: Visit Provider Obstetrics & Gynecology
DX: Z12.31 Encounter for screening mammogram for malignant neoplasm of breast (principal); R92.323 Mammographic fibroglandular density, bilateral breasts
CPT/HCPCS: 77063; 77067

== ENCOUNTER 2025-03-27 14:34 | Outpatient (REF) | payer OTHER, SELFPAY ==
[2025-03-27 20:09] LABS: Abs Immature Grans 0.02 10^3/uL (0.0-0.06); HCT 43.9 % (36.0-46.0); HGB 14.5 g/dL (11.2-15.7); Immature Grans % 0.3 %; MCH 29.7 pg (27.0-33.0); MCHC 33.0 % (32.0-36.0); MCV 90 fL (80-95); MPV 10.6 fL (8.0-11.0); Platelet Count 307 10^3/uL (130-400); RBC 4.89 10^6/uL (3.93-5.22); RDW 12.2 % (11.7-14.6); RDW-SD 40.2 fL; WBC 7.54 10^3/uL (4.4-10.8)
[2025-03-27 20:31] LABS: ALT 41 U/L (14-59); AST 16 U/L (15-37); Albumin 4.2 g/dL (3.4-5.0); Alkaline Phosphatase 57 U/L (46-116); Anion Gap 12.1 mmol/L (3-11); BUN 12 mg/dL (7-18); Bilirubin, Total 0.8 mg/dL (0.2-1.0); CO2 26.9 mmol/L (21.0-32.0); Calcium 9.3 mg/dL (8.5-10.1); Calculated LDL 123 mg/dL (<100); Chloride 103 mmol/L (98-107); Cholesterol 203 mg/dL (<200); Estimated GFR 77.88 (mL/min/1.73m2); Glucose 82 mg/dL (74-106); HDL Cholesterol 53 mg/dL (>or=50); Potassium 4.1 mmol/L (3.5-5.1); Sodium 142 mmol/L (136-145); Total Protein 7.3 g/dL (6.4-8.2); Triglyceride 137 mg/dL (<150)
[2025-03-27 20:33] LABS: Hemoglobin A1C 5.6 % (<5.7)
== END 2025-03-27 14:35 | disposition home or self-care (01) ==
LOC: NCHCN 14:34
PROVIDERS: PCP Nurse Practitioner Family; Visit Provider Nurse Practitioner Family
DX: Z00.00 Encounter for general adult medical examination without abnormal findings (principal); Z13.1 Encounter for screening for diabetes mellitus; Z13.6 Encounter for screening for cardiovascular disorders
CPT/HCPCS: 80053; 80061; 83036; 85025